=== PATIENT | male | born 1980 | race Caucasian/White ===

== ENCOUNTER 2020-11-14 11:05 | Emergency (ER) | payer OTHER, SELFPAY ==
--- NOTE | ~2020-11-14 | XR_ITS ---
EXAMINATION:XR_[id number]_CR DATE: 11/14/2020 12:09 INDICATION: Neck pain TECHNIQUE: AP, lateral, lateral swimmers and odontoid views of the cervical spine are provided. COMPARISON: None FINDINGS: Alignment is normal. The odontoid is intact. No fracture is identified. Vertebral body heig hts are normal. There is mild loss of intervertebral disc space height at C5-6 and C6-7. Small degene rative osteophytes project from the anterior endplates of multiple vertebral bodies. Prevertebral sof t tissues are normal. IMPRESSION: 1. Mild cervical spondylosis without acute findings. Reviewed, dictated and finalized at location B.
[2020-11-14 11:20] VITALS: BP 124/91; PULSE 83; RESP 16; TEMP 36.8; O2SAT 98
--- NOTE | 2020-11-14 11:49 | ED.BACK ---
HPI - Back Pain/Injury General Chief Complaint: Back Pain/Injury Stated Complaint: back pain Source: patient and RN notes reviewed Mode of arrival: ambulatory History of Present Illness HPI Narrative: This is a 40-year-old male that presented to urgent care with complaints of back pain in his cervical spine. According to patient he cannot recall any trauma that may have occurred he does complain of tingling to his left arm and is pinky finger and ring finger. According to patient when he turns his neck right to left or bend over it does create pain. Patient does have a nerve study echo in the next couple weeks for the opposite arm. Patient notes that he has had a massage to try to relieve his pain with no relief. The patient denies SOB, CP, palpitation, extremity numbness, lightheadedness, dizziness, constipation, diarrhea, chills, or fever. Pulses are palpable patient has full range of motion to his upper extremities positive for slump test positive patient instructed to follow-up with his primary care physician MD elicited complaint: back pain Related Data Allergies Allergy/AdvReac Type Severity Reaction Status Date / Time No Known Allergies Allergy Verified 11/14/20 11:20 Review of Systems Review of Systems: Narrative: A 14 organ system Review of Systems was performed and pertinent positives included in the HPI, otherwise remaining ROS is negative. [facility] Family History Family History (Updated 11/14/20 @ 11:50 by TAWANNA Rivero) Other Family history non-contributory Exam Narrative: Exam Narrative: GENERAL: This is a well-nourished, well-developed patient, in no apparent distress. HEAD: normocephalic, atraumatic. EYES: PERRL. Sclera clear/white. Vision is grossly intact. EARS: External ears normal, auditory canals clear and without drainage, TMs normal without perforation. Hearing grossly intact. NOSE: External nose normal with no obvious nasal discharge, nares without redness, no rhinorrhea. THROAT: Mucous membranes moist, posterior pharynx clear. NECK: Neck supple, non-tender without lymphadenopathy, masses or thyromegaly. CARDIOVASCULAR: Regular rate and rhythm without murmurs, gallops, or rubs. RESPIRATORY: Clear to auscultation. Breath sounds equal bilaterally. No wheezes, rales, or rhonchi. GASTROINTESTINAL: Abdomen soft, non-tender, nondistended. Bowel sounds are active. No hepato-splenomegaly, or palpable masses. No guarding. SKIN: warm, intact with no suspicious lesions or rash, good texture and turgor. NEURO: awake, alert, and oriented to person, place and time. There were no obvious focal neurologic abnormalities. Steady gait EXTREMITIES: Normal range of motion. No edema. Pain while bending over and turning head from side to side no calf tenderness. Negative Homans sign bilaterally. BACK: Nontender without deformity or crepitance. No flank tenderness. Course Course Emergency Course: Patient will discharge him home with Flexeril and naproxen and follow-up with his primary care physician for further testing Vital Signs Vital signs: Vital Signs Temperature 98.2 F 11/14/20 11:20 Pulse Rate 83 11/14/20 11:20 Respiratory Rate 16 11/14/20 11:20 Blood Pressure 124/91 H 11/14/20 11:20 Pulse Oximetry 98 11/14/20 11:20 Temperature 98.2 F 11/14/20 11:20 Pulse Rate 83 11/14/20 11:20 Respiratory Rate 16 11/14/20 11:20 Blood Pressure 124/91 H 11/14/20 11:20 Pulse Oximetry 98 11/14/20 11:20 MDM - Back Pain/Injury Differential Diagnosis Differential diagnosis: Likely lumbar radiculopathy, strain of lumbar region and thoracic back pain Discharge Plan Discharge Clinical Impression: Strain of lumbar region Qualifiers: Encounter type: initial encounter Qualified Code(s): S39.012A - Strain of muscle, fascia and tendon of lower back, initial encounter Back pain Qualifiers: Back pain location: back pain in unspecified location Chronicity: acute Back pain laterality: unspe
== END 2020-11-14 12:27 | disposition home or self-care (01) ==
PROVIDERS: Emergency Provider Nurse Practitioner
DX: S39.012A Strain of muscle, fascia and tendon of lower back, initial encounter (principal); X58.XXXA Exposure to other specified factors, initial encounter; M54.31 Sciatica, right side; M54.2 Cervicalgia
CPT/HCPCS: 72040; 99213; G0463

== ENCOUNTER 2020-11-19 08:57 | Emergency (ER) | payer OTHER, SELFPAY ==
--- NOTE | ~2020-11-19 | CT_ITS ---
EXAMINATION: CT cervical spine wo con DATE: 11/19/2020 10:14 INDICATION: Paresthesias TECHNIQUE: Computed tomography (CT) of the cervical spine was performed without intravenous contrast. Automated exposure control and iterative reconstruction technique were employed. The dose-length pro duct was 410.69 mGy-cm. COMPARISON: None FINDINGS: Straightening of the normal cervical lordosis. No spondylolisthesis or facet subluxation. Vertebral b eduardo heights are normal. No fractures. Mild disc height loss at C4-C5 and mild to moderate disc height loss at C5-C6 and C6-C7. Cervical soft tissues are unremarkable. Mild paraseptal emphysema at the bi lateral apices of the lungs. The following disc levels are specifically discussed: C2-C3: The disc does not extend beyond the endplate margin. There is no uncovertebral joint osteoarth ritis. There is mild left and minimal right facet joint osteoarthritis. There is no neural foraminal stenosis. There is no central canal stenosis. C3-C4: The disc does not extend beyond the endplate margin. There is minimal bilateral uncovertebral joint osteoarthritis. There is minimal bilateral facet joint osteoarthritis. There is no neural ian inal stenosis. There is no central canal stenosis. C4-C5: Disc is mildly bulging. There is minimal left uncovertebral joint osteoarthritis. There is min imal left facet joint osteoarthritis. There is no neural foraminal stenosis. There is no central efren l stenosis. C5-C6: Disc is bulging with small posterior endplate osteophytes. There is mild right and mild to mod erate left uncovertebral joint osteoarthritis. There is minimal left facet joint osteoarthritis. Ther e is mild left and minimal right neural foraminal stenosis. There is mild central canal stenosis. C6-C7: Disc is bulging with small posterior endplate osteophytes. There is mild bilateral uncovertebr al joint osteoarthritis. There is minimal bilateral facet joint osteoarthritis. There is no neural fo raminal stenosis. There is minimal central canal stenosis. C7-T1: The disc does not extend beyond the endplate margin. There is no uncovertebral joint osteoarth ritis. There is mild to moderate right and minimal left facet joint osteoarthritis. There is no neura l foraminal stenosis. There is no central canal stenosis. IMPRESSION: 1. Mild to moderate lower cervical spondylosis. No acute osseous abnormality. Reviewed, dictated and finalized at location A.
--- NOTE | ~2020-11-19 | XR_ITS ---
EXAMINATION: XR chest 1V portable DATE: 11/19/2020 10:51 INDICATION: Cough. Back and left arm pain and numbness. TECHNIQUE: AP view of the chest was obtained. COMPARISON: None FINDINGS: The lungs are clear with no focal airspace opacities, pulmonary edema, pleural effusion or pneumothor ax. The cardiomediastinal silhouette is normal. Visualized bones and soft tissues are unremarkable. IMPRESSION: 1. No acute cardiopulmonary disease. Reviewed, dictated and finalized at location A.
--- NOTE | ~2020-11-19 | CT_ITS ---
EXAMINATION: CT thoracic spine wo con EXAM DATE: 11/19/2020 10:15 INDICATION: Back pain, left arm numbness. TECHNIQUE: Spiral CT thoracic spine wo con was performed without contrast. Axial, coronal and sagit doreen images were reviewed. The dose-length product (DLP) for this examination was 524.74 mGy-cm. The exposure was tailored according to patient size (auto mA exposure control), and iterative reconstruc tion (ASIR) was used as additional dose reduction technique. There is no prior study for comparison. FINDINGS: There are no acute fractures identified. There is mild thoracic disc disease. The thoracic facet joints are unremarkable. No evidence of thoracic neural foraminal or central canal stenosis. Th ere are 2 right-sided nonobstructing calyceal stones measuring 2.5 mm in size. No endplate erosive ch lawrence. Mild thoracic dextrocurvature, could be positional or mild scoliosis. Small cluster of right upper lobe faint groundglass opacity, nonspecific pneumonitis. IMPRESSION: 1. Mild thoracic disc disease. No evidence of stenosis. 2. Small amount of nonspecific right upper lobe pneumonitis. Reviewed, dictated and finalized at location B.
[2020-11-19 09:12] VITALS: BP 137/91; PULSE 84; RESP 18; TEMP 36.3; O2SAT 96
[2020-11-19] MEDS: KETOROLAC (*BKC) 60 MG/2 ML VIAL IM (10:16)
--- NOTE | 2020-11-19 11:30 | ED.GENADULT ---
HPI - General Adult General Chief complaint: Back Pain/Injury Stated complaint: UPPER BACK PAIN Time Seen by Provider: 11/19/20 09:45 Source: patient and RN notes reviewed Mode of arrival: ambulatory Limitations: no limitations History of Present Illness HPI narrative: Patient is a 40-year-old male who presents with mid back pain radiating to the left upper extremity patient has had this pain for weeks is followed by primary care for this as nerve conduction study planned had seen urgent care roughly 5 days ago was started on narcotic pain medication muscle relaxers and anti-inflammatories. Patient presents noting pain to the left upper extremity is an intermittent aching sharp pain pain also is to the mid thoracic spine. Patient has had this for weeks and notes that he had had a similar occurrence in the right upper extremity that resolved. 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 Patient did not take any of his medications today. Patient denies other focal neurologic deficits lightheadedness dizziness Related Data Allergies Allergy/AdvReac Type Severity Reaction Status Date / Time No Known Allergies Allergy Verified 11/19/20 09:15 Review of Systems Review of Systems: All systems reviewed & are unremarkable except as noted in HPI and below PMFSH Family History Family History (Updated 11/14/20 @ 11:50 by TAWANNA Rivero) Other Family history non-contributory Social History Social History (Updated 11/19/20 @ 11:31 by Efren Alford PA-C) Smoking status: Current every day smoker Exam Narrative: Exam Narrative: GENERAL: Well-appearing, well-nourished, and in no acute distress. HEAD: Normocephalic, atraumatic. EYES: PERRLA and EOMI. ENT: Nares clear, no rhinorrhea or epistaxis. Mucous membranes moist. NECK: Supple. No adenopathy or masses. CHEST: Clear to auscultation. No respiratory distress. No wheezes rales or rhonchi HEART: Regular rate and rhythm. No murmur heard. Normal peripheral pulses. EXTREMITIES: Normal range of motion. No edema. Patient with mid thoracic tenderness in the upper thoracic segments there is no cervical tenderness no lumbar tenderness no rash or deformities noted SKIN: Warm, dry, no rash. NEURO: No focal deficits. Alert and oriented x3. Cranial nerves II through XII grossly intact. Neurovascularly intact. Capillary refill less than 2 seconds. Normal speech and gait. Motor and sensory intact and symmetrical in the extremities PSYCH: Normal mood and affect. Course Course Emergency Course: Patient presented to emergency department for evaluation of midthoracic left upper extremity pain has follow-up with primary care for nerve conduction studies he has CT imaging of the cervical and thoracic spine today which were unremarkable patient advised to continue his medications will add some medication as an adjunct patient advised to follow with primary care for further discussion will be placed off work and advised to follow with primary care for release back to work and discussion of either pain management possibly MRI or physical therapy referrals Vital Signs Vital signs: Vital Signs Temperature 97.3 F L 11/19/20 09:12 Pulse Rate 84 11/19/20 09:12 Respiratory Rate 18 11/19/20 09:12 Blood Pressure 137/91 H 11/19/20 09:12 Pulse Oximetry 96 11/19/20 09:12 Temperature 97.3 F L 11/19/20 09:12 Pulse Rate 84 11/19/20 09:12 Respiratory Rate 18 11/19/20 09:12 Blood Pressure 137/91 H 11/19/20 09:12 Pulse Oximetry 96 11/19/20 09:12 Medical Decision Making MDM Narrative Medical decision making narrative: Patients injury or pain is consistent with musculoskeletal etiology. No signs of neurological or vascular compromise on exam. Compartments and tisues are soft without signs of compartment syndrome. Pain is felt appropriate for further evaluation on an outpatient basis. Vital Signs Anahi
[2020-11-19 11:48] VITALS: BP 142/76; PULSE 80; RESP 18; O2SAT 100
== END 2020-11-19 11:49 | disposition home or self-care (01) ==
PROVIDERS: Emergency Provider Emergency Medicine
DX: M54.6 Pain in thoracic spine (principal); M79.602 Pain in left arm; F17.200 Nicotine dependence, unspecified, uncomplicated; J18.9 Pneumonia, unspecified organism; M47.812 Spondylosis without myelopathy or radiculopathy, cervical region; M51.9 Unspecified thoracic, thoracolumbar and lumbosacral intervertebral disc disorder
CPT/HCPCS: 71045; 72125; 72128; 96372; 99284; J1885

== ENCOUNTER 2020-12-01 12:34 | Outpatient (CLI) | payer OTHER, SELFPAY ==
--- NOTE | ~2020-12-01 | MR_ITS ---
EXAMINATION: MR cervical spine wo con DATE: 12/01/2020 13:32 INDICATION: Numbness and tingling in the left arm. TECHNIQUE: Magnetic resonance imaging (MRI) of the cervical spine was performed without intravenous c ontrast. Sequences included sagittal T2-weighted FSE, sagittal STIR FSE, sagittal T1-weighted FSE, ax ial MERGE, and axial T2-weighted FSE. COMPARISON: CT cervical spine 11/19/2020 FINDINGS: Bone alignment is normal. Vertebral body heights are normal. There is mildly decreased disc height at C4-C5 and C5-C6 and moderately decreased disc height at C6-C7. The spinal cord signal inte nsity is normal. The following disc levels are specifically discussed: C2-C3: The disc does not extend beyond the endplate margin. There is no uncovertebral joint osteoarth ritis. There is no facet joint osteoarthritis. There is no neural foraminal stenosis. There is no bobby tral canal stenosis. C3-C4: The disc does not extend beyond the endplate margin. There is no uncovertebral joint osteoarth ritis. There is no facet joint osteoarthritis. There is no neural foraminal stenosis. There is no bobby tral canal stenosis. C4-C5: There is a central protrusion. There is mild left uncovertebral joint osteoarthritis. There is no facet joint osteoarthritis. There is no neural foraminal stenosis. There is no central canal sten osis. C5-C6: There is a left central extrusion. There is mild right and moderate left uncovertebral joint o steoarthritis. There is no facet joint osteoarthritis. There is mild bilateral neural foraminal steno sis. There is mild central canal stenosis. C6-C7: The disc is bulging with superimposed left foraminal extrusion. There is mild bilateral uncove rtebral joint osteoarthritis. There is mild right facet joint osteoarthritis. There is mild right and moderate left neural foraminal stenosis. There is mild central canal stenosis. C7-T1: The disc does not extend beyond the endplate margin. There is no uncovertebral joint osteoarth ritis. There is no facet joint osteoarthritis. There is no neural foraminal stenosis. There is no bobby tral canal stenosis. IMPRESSION: 1. Moderate cervical spondylosis, worst at C6-C7. Reviewed, dictated and finalized at location A.
== END 2020-12-01 12:35 | disposition home or self-care (01) ==
LOC: ANHIMG 12:39
PROVIDERS: PCP Family Medicine; Visit Provider Family Medicine
DX: R20.0 Anesthesia of skin (principal); R20.2 Paresthesia of skin; M47.22 Other spondylosis with radiculopathy, cervical region
CPT/HCPCS: 72141